=== PATIENT | male | born 1990 | race Caucasian/White ===

== ENCOUNTER 2019-06-15 13:51 | Emergency (ER) | payer SELFPAY ==
[~2019-06-15] VITALS: Ht 175.3 cm; Wt 63.6 kg
[2019-06-15] MEDS ORDERED: methylPREDNISolone SOD SUCC PF 125 MG/2 ML VIAL. IM ONE (14:30)
[2019-06-15] MEDS ORDERED: TRIA80OI TP (14:52)
[2019-06-15] MEDS ORDERED: PRED20TA PO (14:52)
--- NOTE | 2019-06-15 14:52 | PHYS DOC ---
Past History Past Medical History: Other Additional Past Medical Histor: PSORIACIS Past Surgical History: No Surgical History Smoking: Less than 1pk/day Alcohol Use: Occasionally Drug Use: None Adult General Chief Complaint Chief Complaint: SKIN PROBLEM HPI HPI Patient is a 29-year-old male presented to ER today for evaluation of itchy rash all over body for about week. Patient denies any fever, no trouble breathing. Patient said he had a history of psoriasis all his life. Patient said about 2 months ago he started having severe itchy with rash. he went to see his doctor who put him on steroids. Patient said he was on steroid and he got better, however he finished the medication about 10 days ago and he started having the rash again. Patient has never been evaluated by a margarine maker physician in the past. he denies any trouble breathing, denies any trouble swallowing. All other ROS is negative unless otherwise noted in HPI Review of Systems Review of Systems See above Current Medications Current Medications Current Medications Medications (Trade) Dose Ordered Sig/Lisa Start Time Stop Time Status Last Admin Dose Admin Methylprednisolone Sodium Succinate (SOLU-Medrol 125MG VIAL) 125 mg 1X ONCE 06/15/19 14:30 06/15/19 14:31 DC 06/15/19 14:30 125 MG Allergies Allergies Allergies Coded Allergies Type Severity Reaction Last Updated Verified No Known Drug Allergies 05/22/13 No Physical Exam Physical Exam See above Constitutional: Well developed, well nourished, no acute distress, non-toxic appearance. [] HENT: Normocephalic, atraumatic, bilateral external ears normal, oropharynx moist, no oral exudates, nose normal. [] Eyes: PERRLA, EOMI, conjunctiva normal, no discharge. [] Neck: Normal range of motion, no tenderness, supple, no stridor. [] Cardiovascular:Heart rate regular rhythm, no murmur [] Lungs & Thorax: Bilateral breath sounds clear to auscultation [] Abdomen: Bowel sounds normal, soft, no tenderness, no masses, no pulsatile masses. [] Skin: Warm, dry, DIFFUSE MACULOPAPULAR RASH ON CHEST, NECK, ABDOMEN AND EXTREMITIES AREA. Back: No tenderness, no CVA tenderness. [] Extremities: No tenderness, no cyanosis, no clubbing, ROM intact, no edema. [] Neurologic: Alert and oriented X 3, normal motor function, normal sensory fun ction, no focal deficits noted. [] Psychologic: Affect normal, judgement normal, mood normal. [] Current Patient Data Vital Signs Vital Signs Date Time Temp Pulse Resp B/P (MAP) Pulse Ox O2 Delivery O2 Flow Rate FiO2 06/15/19 14:01 97.9 80 16 141/81 (101) 99 Room Air EKG EKG [] Radiology/Procedures Radiology/Procedures [] Course & Med Decision Making Course & Med Decision Making Pertinent Labs and Imaging studies reviewed. (See chart for details) Patient is a 29-year-old male who was evaluated in the ER today due to rash on his body. It appeared he had exacerbation of his psoriasis. He is in no acute distress, he will need to be followed by a rheumatology doctor at an outpatient setting for further evaluation and treatment. Dragon Disclaimer Dragon Disclaimer This electronic medical record was generated, in whole or in part, using a voice recognition dictation system. Departure Departure: Impression: Primary Impression: Rash and nonspecific skin eruption Disposition: HOME, SELF-CARE Condition: STABLE Referrals: PCP,NO (PCP) PLEASE FOLLOW UP WITH A MARKETING OPERATIONS ASSOCIATE FOR FURTHER EVALUATION NEXT WEEK. Patient Instructions: Rash Additional Instructions: Thank you for visiting our Emergency Department. We appreciate you trusting us with your care. If any additional problems come up don't hesitate to return to visit us. Please follow up with your primary care provider so they can plan additional care if needed and know about the problem that you had. If symptoms worsen come back to the Emergency Department. Any concerning symptoms that start such as chest pain, shortness of air, weakness or numbness on one side of the body, running high fevers or any other concerning symptoms return to the ER. Scripts Triamcinolone Acetonide (TRIAMCINOLONE ACETONIDE) 80 Gm Oint...g. 1 NATHALIE TP BID for RASH, #60 GM 1 Refill Prov: LALA CHANDLER DO 06/15/19 Prednisone (PREDNISONE) 20 Mg Tablet 1 TAB PO DAILY for RASH, #15 TAB Prov: LALA CHANDLER DO 06/15/19 LALA CHANDLER DO Jun 15, 2019 14:52
[2019-06-15 14:56] VITALS: BP 148/67
== END 2019-06-15 15:05 | disposition home or self-care (01) ==
LOC: ER 13:51
DX: R21 Rash and other nonspecific skin eruption (principal); L29.9 Pruritus, unspecified; L40.9 Psoriasis, unspecified; F17.200 Nicotine dependence, unspecified, uncomplicated
CPT/HCPCS: 96372; 99283; J2930

== ENCOUNTER 2019-11-10 22:22 | Emergency (ER) | payer SELFPAY ==
[~2019-11-10] VITALS: Ht 177.8 cm; Wt 63.6 kg
[2019-11-10 22:22] VITALS: BP 137/87
[~2019-11-10 22:22] MED LIST: PRED20TA PO; TRIA80OI TP
[2019-11-10] MEDS ORDERED: ERYT1OIN6 OP (22:54)
[2019-11-10] MEDS ORDERED: PRED20TA PO (22:54)
--- NOTE | 2019-11-10 22:54 | PHYS DOC ---
Past History Past Medical History: Other Additional Past Medical Histor: Psoriasis, Eczema Past Surgical History: No Surgical History Smoking: Cigarettes, Less than 1pk/day Alcohol Use: Occasionally Drug Use: None General Adult EDM: Chief Complaint: Rash, Eye discomfort HPI: HPI: 29-year-old male with past medical history of psoriasis and eczema presents with report of worsening dry cracked skin and eye discomfort that is been ongoing for the past several days. Patient reports he has been on multiple medications in the past but nothing seems to help except for steroids. Aysha does not have a family physician to follow with and cannot afford to see a collections manager due to financial constraints and lack of insurance. Patient reports waking with crusting on his eyelashes. Aysha is seen an abalone sheller in the past who reported his condition was secondary to "dry eyes ". Denies any fever or chills. Denies known sick contacts. Denies known exposure to COVID-19. Review of Systems: Review of Systems: Constitutional: Denies fever or chills Eyes: Reports bilateral eye irritation and discharge HENT: Denies nasal congestion or sore throat Respiratory: Denies cough or shortness of breath Cardiovascular: Denies chest pain or palpitations GI: Denies abdominal pain, nausea, or vomiting : Denies dysuria or hematuria Musculoskeletal: Denies back pain or joint pain Integument: Reports dry cracked skin Neurologic: Denies headache, focal weakness or sensory changes Complete systems were reviewed and found to be within normal limits, except as documented in this note. Current Medications: Current Meds: Current Medications Medications (Trade) Dose Ordered Sig/Lisa Start Time Stop Time Status Last Admin Dose Admin Dexamethasone (Decadron) 10 mg 1X ONCE 11/10/19 22:45 11/10/19 22:46 UNV Allergies: Allergies: Allergies Coded Allergies Type Severity Reaction Last Updated Verified No Known Drug Allergies 05/22/13 No Physical Exam: PE: Constitutional: Well developed, well nourished, no acute distress, non-toxic appearance HENT: Normocephalic, atraumatic Eyes: PERRL, EOMI, conjunctiva slightly injected, no discharge, normal red reflex noted bilaterally on ophthalmoscope Neck: Normal range of motion, supple Lungs & Thorax: No respiratory distress, equal chest rise and fall Skin: Warm, dry cracked skin noted to face, arms and legs consistent for atopic dermatitis Extremities: ROM intact, no edema Neurologic: Alert and oriented X 3, no focal deficits noted Psychologic: Affect normal, judgment normal EKG: EKG: [] Radiology/Procedures: Radiology/Procedures: [] Course & Med Decision Making: Course & Med Decision Making Patient presents with HPI and physical exam consistent for psoriasis exacerbation and eczema. Patient also reporting eye discharge and irritation. Symptoms likely also secondary to psoriatic condition versus allergen. Erythromycin ophthalmic ointment therefore provided for protection but also coverage for infectious process. Oral steroid provided. Patient advised to use [id number] Aquaphor or Eucerin. Patient stable for discharge with outpatient follow-up with PCP. PCP referrals provided. Discussed findings and plan with patient, who acknowledges understanding and agreement. DragEncision Disclaimer: Heetch Disclaimer: This electronic medical record was generated, in whole or in part, using a voice recognition dictation system. Departure Departure: Impression: Primary Impression: Psoriasis Additional Impressions: Conjunctivitis Qualified Codes: H10.9 - Unspecified conjunctivitis Eczema Qualified Codes: L30.9 - Dermatitis, unspecified Disposition: HOME/RESIDENCE PRIOR TO ADM Condition: STABLE Referrals: PCP,NO (PCP) Patient Instructions: Allergic Conjunctivitis, [id number], Conjunctivitis (Viral and Bacterial), Eczema, Psoriasis, [id number] Scripts Erythromycin Base (Erythromycin) 1 Gm Oint...g. 0.25 INCH OP QID for Conjunctivitis, #1 TUBE Prov: STEVE DON DO 11/10/19 Prednisone (PREDNISONE) 20 Mg Tablet 2 TAB PO DAILY for Rash, #10 TAB Prov: STEVE DON DO 11/10/19 Justification of Admission: Justification of Admission: Justification of Admission Dx: N/A STEVE DON DO Nov 10, 2019 22:54
[2019-11-10] MEDS ORDERED: ERYTHROMYCIN 0.5% OPHTH OINTMENT 1GM TUBE. ONE (22:56)
[2019-11-10] MEDS ORDERED: DEXAMETHASONE 4 MG TABLET PO ONE (23:00)
[2019-11-10] MEDS ORDERED: ERYTHROMYCIN 0.5% OPHTH OINTMENT 1GM TUBE. OU ONE (23:00)
== END 2019-11-10 23:10 | disposition home or self-care (01) ==
LOC: ER 22:22
DX: L40.9 Psoriasis, unspecified (principal); H10.89 Other conjunctivitis; L30.9 Dermatitis, unspecified; F17.210 Nicotine dependence, cigarettes, uncomplicated; Z79.899 Other long term (current) drug therapy
CPT/HCPCS: 99283; J8540

== ENCOUNTER 2020-03-06 16:02 | Emergency (ER) | payer SELFPAY ==
[~2020-03-06] VITALS: Ht 177.8 cm; Wt 65.0 kg
[~2020-03-06 16:02] MED LIST changes: +ERYT1OIN6 OP
[2020-03-06] MEDS ORDERED: PRED-220 PO (17:33)
--- NOTE | 2020-03-06 17:34 | PHYS DOC ---
Past History Past Medical History: Other Additional Past Medical Histor: Psoriasis, Eczema Past Surgical History: No Surgical History Smoking: Cigarettes, Less than 1pk/day Additional Smoking Information: Vapes Alcohol Use: None Drug Use: None General Adult EDM: Chief Complaint: SKIN PROBLEM HPI: HPI: 30-year-old male presents with concern for flareup of his eczema. He has had eczema his entire life. Yesterday he started to have increased pruritus of his chest and back. He noticed that it is red and inflamed consistent with his previous bouts of eczema. When he gets like this, he usually needs steroids. Creams have not been sufficient. He denies any fever or chills. He denies any exposure to any new chemicals or substances. He has no other complaints at this time. Review of Systems: Review of Systems: Constitutional: Denies fever or chills Eyes: Denies change in visual acuity HENT: Denies nasal congestion or sore throat Respiratory: Denies cough or shortness of breath Cardiovascular: Denies chest pain or edema GI: Denies abdominal pain, nausea, vomiting, bloody stools or diarrhea : Denies dysuria Musculoskeletal: Denies back pain or joint pain Integument: Rash Neurologic: Denies headache, focal weakness or sensory changes Endocrine: Denies polyuria or polydipsia Lymphatic: Denies swollen glands Psychiatric: Denies depression or anxiety Allergies: Allergies: Allergies Coded Allergies Type Severity Reaction Last Updated Verified aloe Allergy Unknown 03/06/20 Yes Uncoded Allergies Type Severity Reaction Last Updated Verified SHELLFISH Allergy Unknown 03/06/20 Physical Exam: PE: Constitutional: Well developed, well nourished, no acute distress, non-toxic appearance. [] HENT: Normocephalic, atraumatic, bilateral external ears normal, oropharynx moist, no oral exudates, nose normal. [] Eyes: PERRLA, EOMI, conjunctiva normal, no discharge. [] Neck: Normal range of motion, no tenderness, supple, no stridor. [] Cardiovascular:Heart rate regular rhythm, no murmur [] Lungs & Thorax: Bilateral breath sounds clear to auscultation [] Abdomen: Bowel sounds normal, soft, no tenderness, no masses, no pulsatile masses. [] Skin: Erythematous patches all over the chest and posterior trunk consistent with eczema. [] Back: No tenderness, no CVA tenderness. [] Extremities: No tenderness, no cyanosis, no clubbing, ROM intact, no edema. [] Neurologic: Alert and oriented X 3, normal motor function, normal sensory function, no focal deficits noted. [] Psychologic: Affect normal, judgement normal, mood normal. [] Current Patient Data: Vital Signs: Vital Signs Date Time Temp Pulse Resp B/P (MAP) Pulse Ox O2 Delivery O2 Flow Rate FiO2 03/06/20 16:20 97.7 70 14 117/69 (85) 99 EKG: EKG: [] Radiology/Procedures: Radiology/Procedures: [] Heart Score: Risk Factors: Risk Factors: DM, Current or recent (<one month) smoker, HTN, HLP, family history of CAD, obesity. Risk Scores: Score 0 - 3: 2.5% MACE over next 6 weeks - Discharge Home Score 4 - 6: 20.3% MACE over next 6 weeks - Admit for Clinical Observation Score 7 - 10: 72.7% MACE over next 6 weeks - Early Invasive Strategies Course & Med Decision Making: Course & Med Decision Making Pertinent Labs and Imaging studies reviewed. (See chart for details) The patient appears to have an eczema flare. I will treat him with steroids taper for 10 days. He is stable for discharge at this time. [] Dragon Disclaimer: Dragon Disclaimer: This electronic medical record was generated, in whole or in part, using a voice recognition dictation system. Departure Departure: Impression: Primary Impression: Eczema Disposition: 01 DC HOME SELF CARE/HOMELESS Condition: STABLE Referrals: PCP,NO (PCP) Patient Instructions: Eczema Scripts Prednisone (PREDNISONE) 10 Mg Tablet 10 MG PO UD for PREDNISONE TAPER, #39 TAB 0 Refills Take 3 tablets by mouth twice a day for 3 days, then take 2 tablets by mouth twice a day for 3 days, then take 1 tablet by mouth twice a day for 3 days, then take 1 tablet by mouth daily x 3 days, then stop. Prov: ANDRE MENDIOLA DO 03/06/20 ANDRE MENDIOLA DO Mar 06, 2020 17:34
== END 2020-03-06 18:05 | disposition home or self-care (01) ==
LOC: ER 16:02
DX: L30.9 Dermatitis, unspecified (principal); F17.210 Nicotine dependence, cigarettes, uncomplicated; Z88.8 Allergy status to other drugs, medicaments and biological substances
CPT/HCPCS: 99283

== ENCOUNTER 2020-04-21 16:16 | Emergency (ER) | payer SELFPAY ==
[~2020-04-21] VITALS: Ht 177.8 cm; Wt 65.0 kg
[~2020-04-21 16:16] MED LIST changes: +PRED-220 PO
[2020-04-21 16:36] VITALS: BP 115/75
--- NOTE | 2020-04-21 17:03 | PHYS DOC ---
Past History Past Medical History: No Pertinent History, Other Additional Past Medical Histor: Psoriasis, Eczema (STEVE MENDOZA APRN) Past Surgical History: No Surgical History (STEVE MENDOZA APRN) Smoking: Cigarettes, Less than 1pk/day Alcohol Use: None Drug Use: None (STEVE MENDOZA APRN) Adult General Chief Complaint Chief Complaint: SKIN PROBLEM HPI HPI Patient is a 30-year-old male who presents emergency department with complaints of eczema exacerbation. Patient states he has been battling eczema problems since he was 16 years old, patient states that he usually takes prednisone which clears his symptoms right up, however the day he stops taking prednisone he says his symptoms quickly returned. Patient states that he has tried triamcinolone cream in the past over the past 14 years and it has never seemed to work and is not interested in another prescription for triamcinolone. Patient reports that this particular breakout started approximately 10 days ago, he has been using [id number] creams at home without results. Patient states he needs to have a steroid injection and oral steroids to help with this particular breakout. Patient reports this break-up being very itchy, patient denies any other symptoms, denies other physical illnesses, denies other physical complaints. Patient states he does not have any COVID-19 virus symptoms and does not wish to be tested for the COVID-19 virus today. (STEVE MENDOZA APRN) Review of Systems Review of Systems 14 body systems of review of systems have been reviewed. See HPI for pertinent positives and negative responses, otherwise all other systems are negative, nonpertinent or noncontributory. (STEVE MENDOZA APRN) Current Medications Current Medications Patient reports taking no [id number] medications at home at this time. (STEVE MENDOZA APRN) Allergies Allergies Allergies Coded Allergies Type Severity Reaction Last Updated Verified aloe Allergy Unknown 03/06/20 Yes Uncoded Allergies Type Severity Reaction Last Updated Verified SHELLFISH Allergy Unknown 03/06/20 (STEVE MENDOZA APRN) Physical Exam Physical Exam Constitutional: Well developed, well nourished, no acute distress, non-toxic appearance. HENT: Normocephalic, atraumatic, bilateral external ears normal, oropharynx moist, no oral exudates, nose normal. Eyes: PERRLA, EOMI, conjunctiva normal, no discharge. Neck: Normal range of motion, no tenderness, supple, no stridor. Cardiovascular:Heart rate regular rhythm, no murmur Lungs & Thorax: Bilateral breath sounds clear to auscultation Abdomen: Bowel sounds normal, soft, no tenderness, no masses, no pulsatile masses. Skin: Warm, dry, marked xerosis with keratosis pilaris throughout trunk and extremities with lichenification with eczematous lesions that are not exudative, consistent with atopic dermatitis eczema flareup. Back: No tenderness, no CVA tenderness. Extremities: No tenderness, no cyanosis, no clubbing, ROM intact, no edema. Neurologic: Alert and oriented X 3, normal motor function, normal sensory function, no focal deficits noted. Psychologic: Affect normal, judgement normal, mood normal. (STEVE MENDOZA APRN) Current Patient Data Vital Signs Vital Signs Date Time Temp Pulse Resp B/P (MAP) Pulse Ox O2 Delivery O2 Flow Rate FiO2 04/21/20 16:36 68 18 115/75 (88) 100 (STEVE MENDOZA APRN) EKG EKG [] (STEVE MENDOZA APRN) Radiology/Procedures Radiology/Procedures [] (STEVE MENDOZA APRN) Heart Score Risk Factors: Risk Factors: DM, Current or recent (<one month) smoker, HTN, HLP, family history of CAD, obesity. Risk Scores: Risk Factors: DM, Current or recent (<one month) smoker, HTN, HLP, family history of CAD, obesity. (STEVE MENDOZA APRN) Course & Med Decision Making Course & Med Decision Making Pertinent Labs and Imaging studies reviewed. (See chart for details) 30-year-old male presents emergency department complaints of eczema flareup is consistent with his eczema flareups in the past, patient states that he has been battling his eczema since he was 16, patient states that is progressively become worse over the past several years, patient states the triamcinolone cream never works and he does not wish to try triamcinolone today. Physical examination was consistent with eczema flareup, will start start with 80 mg Depo-Medrol IM in ED today, home with a prescription for Medrol Dosepak, will give prescription for Atarax for severe pruritus, patient gave verbal understanding of diagnosis of eczema, atopic dermatitis, patient gave verbal understanding of discharge prescription instructions, return to ER precautions and concerns, patient had no further questions or concerns, patient discharged home without incident. Diagnosis atopic dermatitis, eczema flareup, unlikely contact dermatitis, seborrheic dermatitis, scabies, psoriasis, impetigo, musculus of dermatitis. (STEVE MENDOZA APRN) Course & Med Decision Making I have reviewed the AUTOMATED LOGISTICS SPECIALIST's note and plan of care. I was available for consultation as needed during the patient's visit in the emergency department. I agree with the clinical impression, plan, and disposition. (GERRY SOLITARIO DO) Dragon Disclaimer Dragon Disclaimer This electronic medical record was generated, in whole or in part, using a voice recognition dictation system. (STEVE MENDOZA APRN) Departure Departure: Impression: Primary Impression: Eczema Additional Impression: Atopic dermatitis Disposition: 01 DC HOME SELF CARE/HOMELESS Condition: IMPROVED Referrals: PCP,NO (PCP) Patient Instructions: Eczema Additional Instructions: You have been treated for your eczema flareup, please take prescriptions as directed, return to the emergency room for worsening symptoms or other concerns. EMERGENCY DEPARTMENT GENERAL DISCHARGE INSTRUCTIONS Thank you for coming to [facility] (ED) today and trusting us with you care. We trust that you had a positivie experience in our Emergency Department. If you wish to speak to the department management, you may call the director at [phone]. YOUR FOLLOW UP INSTRUCTIONS ARE FOLLOWS: 1. Do you have a private Doctor? If you do not have a private doctor, please ask for a resource list of physicians or clinics that may be able to assist you with follow up care. 2. The Emergency Physician has interpreted your x-rays. The X-Ray specialist will also review them. If there is a change in the findings, you will be notified in 48 hours when at all possible. 3. A lab test or culture has been done, your results will be reviewed and you will be notified if you need a change in treatment. ADDITIONAL INSTRUCTIONS AND INFORMATION: 1. Your care today has been supervised by a physician who is specially trained in emergency care. Many problems require more than one evaluation for a complete diagnosis and treatment. We recommend that you schedule your follow up appointment as recommended to ensure complete treatment of you illness or injury. If you are unable to obtain follow up care and continue to have a problem, or if your condition worsens, we recommend that you return to the ED. 2. We are not able to safely determine your condition over the phone nor are we able to give sound medical advice over the phone. For these safety reasons, if you call for medical advice we will ask you to come to the ED for further evaluation. 3. If you have any questions regarding these discharge instructions please call the ED at [phone]. SAFETY INFORMATION: In the interest of safety, wellness, and injury prevention; we encourage you to wear your sealbelt, if you smoke; quite smoking, and we encourage family to use a protective helmet for bicycling and other sporting events that present an increased risk for head injury. IF YOUR SYMPTOMS WORSEN OR NEW SYMPTOMS DEVELOP, OR YOU HAVE CONCERNS ABOUT YOUR CONDITION; OR IF YOUR CONDITION WORSENS WHILE YOU ARE WAITING FOR YOUR FOLLOW UP APPOINTMENT; EITHER CONTACT YOUR PRIMARY CARE DOCTOR, THE PHYSICIAN WHOSE NAME AND NUMBER YOU WERE GIVEN, OR RETURN TO THE ED IMMEDIATELY. Scripts Hydroxyzine Hcl (HYDROXYZINE HCL) 25 Mg Tablet 1 TAB PO PRN Q6-8HRS PRN for ITCHING, #15 TAB 0 Refills Prov: STEVE MENDOZA APRN 04/21/20 Methylprednisolone (MEDROL) 4 Mg Tab.ds.pk 1 PKG PO UD for for skin dermatitis, #1 PKG Prov: STEVE MENDOZA APRN 04/21/20 Problem Qualifiers Primary Impression: Eczema Eczema type: unspecified Qualified Codes: L30.9 - Dermatitis, unspecified Additional Impression: Atopic dermatitis Atopic dermatitis type: unspecified Qualified Codes: L20.9 - Atopic dermatitis, unspecified STEVE MENDOZA APRN Apr 21, 2020 17:03 GERRY SOLITARIO DO Apr 22, 2020 13:36
[2020-04-21] MEDS ORDERED: methylPREDNISolone ACETATE 80 MG/ML VIAL. IM ONE (17:15)
[2020-04-21] MEDS ORDERED: HYDR25TA PO (17:43)
[2020-04-21] MEDS ORDERED: METH4TAB2 PO (17:43)
== END 2020-04-21 17:51 | disposition home or self-care (01) ==
LOC: ER 16:16
DX: L20.9 Atopic dermatitis, unspecified (principal); F17.210 Nicotine dependence, cigarettes, uncomplicated; Z88.8 Allergy status to other drugs, medicaments and biological substances
CPT/HCPCS: 96372; 99283; J1040

== ENCOUNTER 2020-04-25 09:58 | Emergency (ER) | payer SELFPAY ==
[~2020-04-25] VITALS: Ht 177.8 cm; Wt 65.0 kg
[~2020-04-25 09:58] MED LIST changes: +HYDR25TA PO; +METH4TAB2 PO
[2020-04-25 10:10] VITALS: BP 119/61
[2020-04-25] MEDS ORDERED: HYDR30CR30 RC (10:37)
[2020-04-25] MEDS ORDERED: CLIN300C8 PO (10:37)
--- NOTE | 2020-04-25 10:41 | PHYS DOC ---
Past History Past Medical History: Other Additional Past Medical Histor: Psoriasis, Eczema Past Surgical History: No Surgical History Smoking: Cigarettes, Less than 1pk/day Alcohol Use: None Drug Use: None General Adult EDM: Chief Complaint: SKIN RASH/ABSCESS HPI: HPI: 30 yo M PMH eczema (x14 years), presents to the ED as a bounce back with complaints of pruritic rash that started over patient's forehead and is on patient's hands extremities chest and back. Patient was seen in the ED for this 3 days ago and prescribed Medrol Dosepak along with an IM Solu-Medrol dose and antihistamines prn. Has completed 3 days of his Medrol Dosepak and reports he does not feel his symptoms have improved. Is noncompliant with topical corticosteroid. Unsure of any possible allergens. Rash does not involve mucous membranes. 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 Reports rash starts as tiny fluid-filled vesicles that burst (no tingling prior to vesicle formation) and become very pruritic. Denies any other new medications (other than steroids). Review of Systems: Review of Systems: Constitutional: Denies fever or chills Eyes: Denies change in visual acuity HENT: Denies nasal congestion or sore throat Respiratory: Denies cough or shortness of breath Cardiovascular: Denies chest pain or edema GI: Denies abdominal pain, nausea, vomiting, bloody stools or diarrhea : Denies dysuria Musculoskeletal: Denies back pain or joint pain Integument: Denies diaphoresis, no rash in oral cavity Neurologic: Denies headache, focal weakness or sensory changes Endocrine: Denies polyuria or polydipsia Lymphatic: Denies swollen glands Psychiatric: Denies depression or anxiety Allergies: Allergies: Allergies Coded Allergies Type Severity Reaction Last Updated Verified aloe Allergy Unknown 03/06/20 Yes Uncoded Allergies Type Severity Reaction Last Updated Verified SHELLFISH Allergy Unknown 03/06/20 Physical Exam: PE: Constitutional: Well developed, well nourished, no acute distress, non-toxic appearance. HENT: Normocephalic, atraumatic, normal TMs, normal mucous membranes-no rash/ulcers Eyes: EOMI, conjunctiva normal, no discharge. Neck: Normal range of motion, supple, Cardiovascular: S1/2 present, regular rhythm Lungs & Thorax: Speaking in full sentences, bilateral equal chest rise, no tachypnea or increased work of breathing Abdomen: soft, no tenderness, Skin: Warm, dry, numerous patchy flats areas of excoriated erythema over forehead/cheeks/arms/legs/hands, lesions are worse on face with warm erythema inbetween the skin erosions, no lesions in interdigital spaces, negative nikolsky sign Back: No tenderness, no CVA tenderness. [] Extremities: no cyanosis, no edema Neurologic: Alert and oriented X 3, normal motor function, normal sensory function, no focal deficits noted. [] Psychologic: Affect normal, judgement normal, mood normal. [] Current Patient Data: Vital Signs: Vital Signs Date Time Temp Pulse Resp B/P (MAP) Pulse Ox O2 Delivery O2 Flow Rate FiO2 04/25/20 10:10 96.4 61 16 119/61 (80) 100 EKG: EKG: [] Radiology/Procedures: Radiology/Procedures: [] Heart Score: Risk Factors: Risk Factors: DM, Current or recent (<one month) smoker, HTN, HLP, family history of CAD, obesity. Risk Scores: Score 0 - 3: 2.5% MACE over next 6 weeks - Discharge Home Score 4 - 6: 20.3% MACE over next 6 weeks - Admit for Clinical Observation Score 7 - 10: 72.7% MACE over next 6 weeks - Early Invasive Strategies Course & Med Decision Making: Course & Med Decision Making Pertinent Labs and Imaging studies reviewed. (See chart for details) Exam consistent with dermatitis, likely uncontrolled eczema now in the setting of forehead cellulitis, will cover with clindamycin and topical low potency corticosteroid cream. Ddx-dyshidrotic dermatitis, dermatitis herpetiformis, scabies (although no interweb lesions). etc. Patient still has 3 more days of steroids. May benefit from senior living steroid use but will defer to dermatology for specialist evaluation. Strict ED return precautions were given for fever, blurry vision, pain behind the eye, or rash involving mucous membranes. Encouraged urgent outpatient follow-up with PMD and dermatology. Life- threatening processes were considered but are low suspicion at this time, given history and physical exam. Pt was educated on all prescription medications and adverse effects. All patient's questions were answered and pt was stable at time of discharge. Life/limb-threatening differential includes but is not limited to, erythema multiforme, knapp-amanda syndrome, toxic epidermal necrolysis, staphylococcal scalded skin syndrome, necrotizing fasciitis/myositis/cellulitis, purpura fulminans, heparin or warfarin induced skin necrosis, angioedema, anaphylaxis d rug rash, disseminated intravascular coagulation, disseminated gonococcal disease, vasculitis, septicemia, petechial disorder or coagulopathy, viral exanthem, Kawasaki's disease. I spoken with the patient and her caregivers. I explained the patient's con dition, diagnoses and treatment plan based on the information available to me at this time. I have answered the patient and her caregiver's questions and addressed any concerns. The patient and her caregivers have a good understanding of patient's diagnosis, condition and treatment plan as can be expected at this point. Vital signs have been stable. Patient's condition is stable and appropriate for discharge from the emergency department. Patient will pursue further outpatient evaluation with primary care physician or other designated or consulting physician as outlined in the discharge instructions. The patient and/or caregivers are agreeable to this plan of care and follow-up instructions have been explained in detail. The patient and/or caregivers have received these instructions in written form and have expressed an understanding of the discharge instructions. The patient and/or caregivers are aware that any significant change of condition or worsening of symptoms should prompt immediate return to this or the closest emergency department or call to . Jacquelyn Disclaimer: Jacquelyn Disclaimer: This electronic medical record was generated, in whole or in part, using a voice recognition dictation system. Departure Departure: Impression: Primary Impression: Eczema Additional Impression: Facial cellulitis Disposition: 01 DC HOME SELF CARE/HOMELESS Condition: STABLE Referrals: PCP,NO (PCP) FOLLOW UP WITH FAMILY MEDICINE: in 1-2 weeks Family Medicine Address: [address] [address] Patient Instructions: Cellulitis, Eczema Additional Instructions: [place] [id number] [place] [address] EMERGENCY DEPARTMENT GENERAL DISCHARGE INSTRUCTIONS Thank you for coming to [facility] (ED) today and trusting us with you care. We trust that you had a positivie experience in our Emergency Department. If you wish to speak to the department management, you may call the director at [phone]. YOUR FOLLOW UP INSTRUCTIONS ARE FOLLOWS: 1. Do you have a private Doctor? If you do not have a private doctor, please ask for a resource list of physicians or clinics that may be able to assist you with follow up care. 2. The Emergency Physician has interpreted your x-rays. The X-Ray specialist will also review them. If there is a change in the findings, you will be notified in 48 hours when at all possible. 3. A lab test or culture has been done, your results will be reviewed and you will be notified if you need a change in treatment. ADDITIONAL INSTRUCTIONS AND INFORMATION: 1. Your care today has been supervised by a physician who is specially trained in emergency care. Many problems require more than one evaluation for a complete diagnosis and treatment. We recommend that you schedule your follow up appointment as recommended to ensure complete treatment of you illness or injury. If you are unable to obtain follow up care and continue to have a problem, or if your condition worsens, we recommend that you return to the ED. 2. We are not able to safely determine your condition over the phone nor are we able to give sound medical advice over the phone. For these safety reasons, if you call for medical advice we will ask you to come to the ED for further evaluation. 3. If you have any questions regarding these discharge instructions please call the ED at [phone]. SAFETY INFORMATION: In the interest of safety, wellness, and injury prevention; we encourage you to wear your sealbelt, if you smoke; quite smoking, and we encourage family to use a protective helmet for bicycling and other sporting events that present an increased risk for head injury. IF YOUR SYMPTOMS WORSEN OR NEW SYMPTOMS DEVELOP, OR YOU HAVE CONCERNS ABOUT YOUR CONDITION; OR IF YOUR CONDITION WORSENS WHILE YOU ARE WAITING FOR YOUR FOLLOW UP APPOINTMENT; EITHER CONTACT YOUR PRIMARY CARE DOCTOR, THE PHYSICIAN WHOSE NAME AND NUMBER YOU WERE GIVEN, OR RETURN TO THE ED IMMEDIATELY. Scripts Hydrocortisone/Pramoxine (HYDROCORT-PRAMOXINE 1%-1% CRM) 30 Gm Cream.appl 1 NATHALIE RC TID for eczema for 10 Days, #1 GM 0 Refills Prov: ROBERTO VIZCARRA DO 04/25/20 Clindamycin Hcl (CLINDAMYCIN HCL) 300 Mg Capsule 1 CAP PO TID for cellulitis MDD 900mg for 10 Days, #30 CAP Prov: ROBERTO VIZCARRA DO 04/25/20 ROBERTO VIZCARRA DO Apr 25, 2020 10:41
== END 2020-04-25 10:48 | disposition home or self-care (01) ==
LOC: ER 09:58
DX: L30.9 Dermatitis, unspecified (principal); L03.211 Cellulitis of face; F17.210 Nicotine dependence, cigarettes, uncomplicated; Z88.8 Allergy status to other drugs, medicaments and biological substances
CPT/HCPCS: 99283